=== PATIENT | female | born 1990 | race Two or more races ===

== ENCOUNTER 2021-09-27 09:46 | Emergency (ER) | payer MEDICAID ==
[~2021-09-27] VITALS: Ht 165.1 cm; Wt 88.5 kg
[2021-09-27 10:17] VITALS: BP 142/89
[2021-09-27 11:32] LABS: Albumin 3.2 g/dL (3.4-5.0); BUN/Creatinine Ratio 16.1; Calcium 9.2 mg/dL (8.5-10.1); Potassium 3.7 mmol/L (3.5-5.1)
[2021-09-27 11:35] LABS: Bilirubin, Total 0.4 mg/dL (0.2-1.0); Total Protein 7.3 g/dL (6.4-8.2)
[2021-09-27 11:40] LABS: Hematocrit 44.2 % (36.0-46.0); White Blood Cell 2.9 10^3/uL (4.4-10.8)
[2021-09-27 11:42] LABS: Hemoglobin 14.7 g/dL (12.2-16.2); Mean Corpuscular Hemoglobin 25.3 pg (28.0-32.0); Mean Corpuscular Hgb Conc. 33.2 g/dL (32.0-36.0); Mean Corpuscular Volume 76.2 fL (80.0-100.0); Red Blood Cells 5.81 10^6/uL (4.0-5.20); Red Cell Distribution Width 13.7 % (11.8-14.3)
[2021-09-27 11:54] LABS: Basophils % (manual) 0 (0.0-2.0); Eosinophils % (manual) 0 (0-7); Metamyelocytes % 0
[2021-09-27 11:55] LABS: Blast Cells 0; Myelocytes % 0; Promyelocytes % 0; Reactive Lymphocytes 0
[2021-09-27 11:55] LABS: Urine Bacteria NONE SEEN /hpf (None Seen); Urine Blood Negative /uL (Negative); Urine Mucus FEW (None Seen); Urine Specific Gravity 1.037 (1.001-1.035); Urine WBC 10 /hpf (0 - 5)
[2021-09-27 12:05] LABS: Amphetamine Screen, Urine NEGATIVE (NEGATIVE); Benzodiazephine Screen, Urine NEGATIVE (NEGATIVE); Cannabinoid Screen, Urine NEGATIVE (NEGATIVE); Cocaine Screen, Urine NEGATIVE (NEGATIVE); Opiate Scree,Urine NEGATIVE (NEGATIVE); Phencyclidine Screen, Urine NEGATIVE (NEGATIVE)
[2021-09-27 12:07] LABS: Barbiturate Scree,Urine NEGATIVE (NEGATIVE)
[2021-09-27] MEDS ORDERED: ONDA-144 PO (12:18)
[2021-09-27] MEDS ORDERED: DICY10CA PO (12:18)
[2021-09-27 13:46] LABS: Band Neutrophils % (manual) 4; Lymphocytes % (manual) 51 (10.0-50.0); Monocytes % (manual) 8 (0-12)
== END 2021-09-27 12:39 | disposition home or self-care (01) ==
LOC: ER 09:46
DX: K52.9 Noninfective gastroenteritis and colitis, unspecified (principal); I10 Essential (primary) hypertension
CPT/HCPCS: 36415; 80053; 80307; 81001; 81025; 83690; 85007; 85027

== ENCOUNTER 2022-02-16 21:45 | Emergency (ER) | payer MEDICAID ==
[~2022-02-16 21:45] MED LIST: DICY10CA PO; ONDA-144 PO
[2022-02-16 23:12] LABS: Hemoglobin 14.3 g/dL (12.2-16.2); Mean Corpuscular Hemoglobin 25.7 pg (28.0-32.0); Red Cell Distribution Width 13.1 % (11.8-14.3)
[2022-02-16 23:13] LABS: Hematocrit 43.2 % (36.0-46.0); Red Blood Cells 5.55 10^6/uL (4.0-5.20)
[2022-02-16 23:18] LABS: Basophils % (manual) 0 (0.0-2.0); Blast Cells 0; Metamyelocytes % 0; Myelocytes % 0; Promyelocytes % 0; Reactive Lymphocytes 0
[2022-02-16 23:27] LABS: Urine Bacteria FEW /hpf (None Seen); Urine Blood Negative /uL (Negative); Urine Mucus FEW (None Seen); Urine Specific Gravity 1.025 (1.001-1.035); Urine WBC 5 /hpf (0 - 5)
[2022-02-16 23:28] LABS: Albumin 3.4 g/dL (3.4-5.0); BUN/Creatinine Ratio 11.3; Calcium 8.9 mg/dL (8.5-10.1)
[2022-02-16 23:31] LABS: Bilirubin, Total 0.1 mg/dL (0.2-1.0); Total Protein 7.4 g/dL (6.4-8.2)
[2022-02-17 00:13] LABS: Band Neutrophils % (manual) 2; Eosinophils % (manual) 1 (0-7); Lymphocytes % (manual) 58 (10.0-50.0); Monocytes % (manual) 9 (0-12)
[2022-02-17] MEDS ORDERED: NITROFURANTOIN 100 mg CAP PO ONE (01:00)
[2022-02-17] MEDS ORDERED: DICY10CA PO (03:07)
[2022-02-17] MEDS ORDERED: NITR-87 PO (03:07)
[2022-02-17 03:20] VITALS: BP 129/86
== END 2022-02-17 03:37 | disposition home or self-care (01) ==
LOC: ER 21:45
DX: K80.20 Calculus of gallbladder without cholecystitis without obstruction (principal); N39.0 Urinary tract infection, site not specified; I10 Essential (primary) hypertension; Z32.02 Encounter for pregnancy test, result negative
CPT/HCPCS: 36415; 76705; 80053; 81001; 81025; 83690; 85007; 85027

== ENCOUNTER 2022-05-05 01:34 | Emergency (ER) | payer MEDICAID ==
[~2022-05-05] VITALS: Ht 165.1 cm; Wt 95.0 kg
[~2022-05-05 01:34] MED LIST changes: +NITR-87 PO
[2022-05-05 03:05] LABS: Basophils # (auto) 0 10 ^3/uL (0-0.2); Basophils % (auto) 0.5 % (0.0-2.0); Eosinophils # (auto) 0 10 ^3/uL (0-0.8); Eosinophils % (auto) 0.2 % (0.0-7.0); Hematocrit 42.4 % (36.0-46.0); Lymphocytes # (auto) 2.1 10 ^3/uL (0.4-5.4); Lymphocytes % (auto) 25.9 % (10.0-50.0); Monocytes # (auto) 0.6 10 ^3/uL (0-1.3); Monocytes % (auto) 7.1 % (0.0-12.0); Neutrophils # (auto) 5.4 10 ^3/uL (1.6-8.6); Neutrophils % (auto) 66.3 % (37.0-80.0); Red Blood Cells 5.37 10^6/uL (4.0-5.20); Red Cell Distribution Width 13.8 % (11.8-14.3); White Blood Cell 8.2 10^3/uL (4.4-10.8)
[2022-05-05 03:24] LABS: Albumin 3.8 g/dL (3.4-5.0); BUN/Creatinine Ratio 16.7; Calcium 9.1 mg/dL (8.5-10.1); Potassium 3.4 mmol/L (3.5-5.1)
[2022-05-05 03:27] LABS: Bilirubin, Total 0.3 mg/dL (0.2-1.0)
[2022-05-05] MEDS ORDERED: ONDANSETRON HCL 4 MG/2 ML VIAL IV ONE (04:15)
[2022-05-05] MEDS ORDERED: MORPHINE SULFATE INJ 2 MG/ml SYRG IM ONE (04:15)
[2022-05-05] MEDS ORDERED: MORPHINE SULFATE INJ 2 MG/ml SYRG IV ONE (04:30)
[2022-05-05 06:16] LABS: Urine Bacteria NONE SEEN /hpf (None Seen); Urine Blood Negative /uL (Negative); Urine WBC <1 /hpf (0 - 5)
[2022-05-05] MEDS ORDERED: SODIUM CHLORIDE 0.9% 1,000 ML IV ONE ×2 (07:00)
[2022-05-05 10:03] VITALS: BP 124/47
[2022-05-05] MEDS ORDERED: POTASSIUM EFFERVESENT TAB 25 MEQ PO ONE (11:00)
== END 2022-05-05 10:57 | disposition home or self-care (01) ==
LOC: ER 01:34
DX: N83.201 Unspecified ovarian cyst, right side (principal); E87.6 Hypokalemia; I10 Essential (primary) hypertension
CPT/HCPCS: 36415; 71045; 74176; 76705; 76856; 80053; 81001; 81025; 83690; 85025; 96361; 96374; 96375; 99285; J2405; J7030